=== PATIENT | male | born 2005 | race Caucasian/White ===

== ENCOUNTER 2025-02-01 11:55 | Emergency (ER) | payer OTHER ==
[~2025-02-01] VITALS: Ht 177.8 cm; Wt 68.9 kg
[2025-02-01] MEDS: KETOROLAC 60 MG/2 ML VIAL IM ONE (13:49)
[2025-02-01] MEDS ORDERED: METH-1164 PO (14:53)
[2025-02-01 16:12] VITALS: BP 112/71; TEMP 97.1; O2SAT 97
== END 2025-02-01 16:28 | disposition home or self-care (01) ==
LOC: M ED 11:55
DX: M54.50 Low back pain, unspecified (principal); F17.290 Nicotine dependence, other tobacco product, uncomplicated; Z79.899 Other long term (current) drug therapy
CPT/HCPCS: 96372; 99283; J1885

== ENCOUNTER 2025-02-22 16:24 | Emergency (ER) | payer OTHER ==
[~2025-02-22] VITALS: Ht 177.8 cm; Wt 68.2 kg
[~2025-02-22 16:24] MED LIST: METH-1164 PO
[2025-02-22 16:26] VITALS: BP 125/73; TEMP 98.1; O2SAT 99
== END 2025-02-22 17:43 | disposition home or self-care (01) ==
LOC: M ED 16:24
DX: S60.012A Contusion of left thumb without damage to nail, initial encounter (principal); Y92.9 Unspecified place or not applicable; Y93.9 Activity, unspecified; Y99.0 Civilian activity done for income or pay; W23.0XXA Caught, crushed, jammed, or pinched between moving objects, initial encounter; Z79.899 Other long term (current) drug therapy